=== PATIENT | male | born 1960 | race Caucasian/White ===

== ENCOUNTER 2017-03-01 11:39 | Inpatient (IN) | payer OTHER ==
[2017-03-01 16:18] VITALS: BMI 23.4
--- NOTE | 2017-03-01 18:36 | HP ---
CIWA Score - CIWA Score Nausea/Vomitin Muscle Tremors: 3 Anxiety: 3 Agitation: 2 Paroxysmal Sweats: 3 Orientation: 1-Uncertain about Date Tacttile Disturbances: 1-Very Mild Itch/Numbness Auditory Disturbances: 0-None Visual Disturbances: 0-None Headache: 2-Mild CIWA-Ar Total Score: 17 Admission ROS BHS - HPI Chief Complaint: WITHDRAWAL SYMPTOMS Allergies/Adverse Reactions: Allergies Allergy/AdvReac Type Severity Reaction Status Date / Time No Known Allergies Allergy Verified 03/01/17 16:51 History of Present Illness: 56 Y.O. MAN WITH A HISTORY OF ALCOHOL DEPENDENCE IS HERE SEEKING DETOX. HE DENIES EVER GOING TO DETOX AND DOES NOT HAVE A SIGNIFICANT PERIOD OF SOBRIETY. Exam Limitations: Intoxication - Ebola screening Have you traveled outside of the country in the last 21 days: No Have you been sick,other than usual withdrawal symptoms: No - Review of Systems Constitutional: Loss of Appetite, Changes in sleep, Unintentional Wgt. Loss EENT: reports: No Symptoms Reported Respiratory: reports: No Symptoms reported Cardiac: reports: No Symptoms Reported GI: reports: No Symptoms Reported : reports: No Symptoms Reported Musculoskeletal: reports: Back Pain Integumentary: reports: No Symptoms Reported Neuro: reports: Paresthesia (LEFT LE D/T SCIATICA) Endocrine: reports: No Symptoms Reported Hematology: reports: No Symptoms Reported Psychiatric: reports: Agitated, Anxious Other Systems: Reviewed and Negative Patient History - Patient Medical History Hx Anemia: No Hx Asthma: Yes Hx Chronic Obstructive Pulmonary Disease (COPD): No Hx Cancer: No Hx Cardiac Disorders: No Hx Congestive Heart Failure: No Hx Hypertension: No Hx Hypercholesterolemia: No Hx Pacemaker: No HX Cerebrovascular Accident: No Hx Seizures: No Hx Dementia: No Hx Diabetes: No Hx Gastrointestinal Disorders: No Hx Liver Disease: No Hx Genitourinary Disorders: No Hx Sexually Transmitted Disorders: No Hx Renal Disease (ESRD): No Hx Thyroid Disease: No Hx Human Immunodeficiency Virus (HIV): No Hx Hepatitis C: No Hx Depression: No Hx Suicide Attempt: No Hx Bipolar Disorder: No Hx Schizophrenia: No - Patient Surgical History Past Surgical History: Yes Hx Neurologic Surgery: No Hx Cataract Extraction: No Hx Cardiac Surgery: No Hx Lung Surgery: No Hx Breast Surgery: No Hx Breast Biopsy: No Hx Abdominal Surgery: No Hx Appendectomy: No Hx Cholecystectomy: No Hx Genitourinary Surgery: No Hx Section: No Hx Orthopedic Surgery: No Other Surgical History: corrective sx, nose in 2012 - PPD History Previous Implant?: Yes Documented Results: Negative w/o proof Implanted On Prior [facility] Admission?: No PPD to be Administered?: Yes - Reproductive History Patient is a Female of Child Bearing Age (11 -55 yrs old): No - Smoking Cessation Smoking history: Current every day smoker Have you smoked in the past 12 months: Yes Aproximately how many cigarettes per day: 10 Hx Chewing Tobacco Use: No Initiated information on smoking cessation: Yes 'Breaking Loose' booklet given: 03/01/17 - Substance & Tx. History Hx Alcohol Use: Yes Hx Substance Use: No Substance Use Type: Alcohol Hx Substance Use Treatment: No (Denies ever being in detox or rehab ) - Substances Abused Alcohol-vodka Route: Oral Frequency: Daily Amount used: 2 pts. Age of first use: 17 Date of Last Use: 03/01/17 Family Disease History - Family Disease History Family Disease History: CA: Mother, Respiratory: Father Admission Physical Exam [facility] - Vital Signs Vital Signs: Vital Signs - 24 hr 03/01/17 16:17 Temperature 96.4 F L Pulse Rate 89 Respiratory 20 Rate Blood Pressure 134/91 - Physical General Appearance: Yes: Alcohol on Breath, Intoxicated, Tremorous, Irritable, Anxious HEENTM: Yes: Hearing grossly Normal, Normal ENT Inspection, Normocephalic Respiratory: Yes: Chest Non-Tender, Lungs Clear, Normal Breath Sounds, No Respiratory Distress, No Accessory Muscle Use Neck: Yes: No masses,lesions,Nodules, Trachea in good position Breast: Yes: Breast Exam Deferred Cardiology: Yes: Regular Rhythm Abdominal: Yes: Normal Bowel Sounds, Non Tender, Flat, Soft Genitourinary: Yes: Other (NO COMPLAINTS REPORTED) Back: Yes: Normal Inspection Musculoskeletal: Yes: Muscle Pain Extremities: Yes: Normal Inspection, Normal Range of Motion, Non-Tender Neurological: Yes: Alert Integumentary: Yes: Normal Color, Dry, Warm - Diagnostic (1) Alcohol dependence with uncomplicated withdrawal Current Visit: Yes Status: Chronic (2) Sciatica of left side Current Visit: Yes Status: Chronic (3) Asthma Current Visit: Yes Status: Chronic Cleared for Admission [facility] - Detox or Rehab [facility] Level of Care: Medically Managed Detox Regimen/Protocol: Librium BHS Breath Alcohol Content Breath Alcohol Content: 0.295 Urine Drug Screen - Results Drug Screen Negative: No Urine Drug Screen Results: BZO-Benzodiazepines
[2017-03-01] MEDS ORDERED: LOPERAMIDE HCL 2 MG CAPSULE PO PRN (18:44)
[2017-03-01] MEDS ORDERED: chlordiazePOXIDE HCL 25 MG CAPSULE PO PRN (18:44)
[2017-03-01] MEDS ORDERED: P-EPHED 60MG/TRIPROLIDI 2.5MG TABLET PO PRN (18:44)
[2017-03-01] MEDS ORDERED: MAG HYDROX/AL HYDROX/SIMETH 30 ML UNIT-DOSE CUP PO PRN (18:44)
[2017-03-01] MEDS ORDERED: NICOTINE POLACRILEX 2 MG GUM BC PRN (18:44)
[2017-03-01] MEDS ORDERED: guaiFENesin/D-METHORPHAN HB 10 ML UNIT-DOSE CUPS PO PRN (18:44)
[2017-03-01] MEDS ORDERED: MENTHOL/PHENOL 1 EACH UD MM PRN (18:44)
[2017-03-01] MEDS ORDERED: chlordiazePOXIDE HCL 25 MG CAPSULE PO ONE (18:44)
[2017-03-01] MEDS ORDERED: hydrOXYzine PAMOATE 50 MG CAPSULE (FP) PO PRN (18:44)
[2017-03-01] MEDS ORDERED: ACETAMINOPHEN 325 MG TABLET (FP) PO PRN (18:44)
[2017-03-01] MEDS ORDERED: IBUPROFEN 600 MG TABLET (FP) PO PRN (18:44)
[2017-03-01] MEDS ORDERED: MAGNESIUM CITRATE 300 ML BOTTLE PO PRN (18:44)
[2017-03-01] MEDS ORDERED: MAGNESIUM HYDROX 2400MG/30ML ORAL SUSPENSION 30 ML CUP PO PRN (18:44)
[2017-03-01] MEDS ORDERED: diphenhydrAMINE HCL 50 MG CAPSULE PO PRN (18:44)
[2017-03-01] MEDS ORDERED: CYCLOBENZAPRINE HCL 10 MG TABLET (FP) PO PRN (18:46)
[2017-03-01] MEDS ORDERED: ALBUTEROL SO4 6.7 GM HFA INHALER IH PRN (18:49)
[2017-03-01] MEDS ORDERED: NICOTINE 14 MG/24 HOURS TOPICAL PATCH TD ONE (20:30)
[2017-03-01] MEDS: THIAMINE HCL 100 MG TABLET (FP) PO SCH (22:44)
[2017-03-01] MEDS: chlordiazePOXIDE HCL 25 MG CAPSULE PO SCH (22:44)
[2017-03-01 22:48] LABS: URINE APPEARANCE CLEAR; URINE BILIRUBIN NEGATIVE (NEGATIVE); URINE BLOOD NEGATIVE (NEGATIVE); URINE COLOR YELLOW; URINE GLUCOSE (UA) NEGATIVE (NEGATIVE); URINE KETONE NEGATIVE (NEGATIVE); URINE LEUK ESTERASE NEGATIVE (NEGATIVE); URINE NITRITE NEGATIVE (NEGATIVE); URINE PROTEIN NEGATIVE (NEGATIVE); URINE UROBILINOGEN NEGATIVE mg/dL (0.2-1.0)
[2017-03-02] MEDS: chlordiazePOXIDE HCL 25 MG CAPSULE PO SCH ×4 (05:50→23:09)
[2017-03-02] MEDS: PRENATAL VITAMINS W/ FOLIC ACID TABLET (FP) PO SCH (10:25)
[2017-03-02] MEDS: NICOTINE 14 MG/24 HOURS TOPICAL PATCH TD SCH (10:26)
[2017-03-02 11:07] LABS: ALBUMIN 3.5 g/dl (3.4-5.0); ALK PHOS 74 U/L (45-117); ANION GAP 11 (8-16); BILIRUBIN,TOTAL 0.4 mg/dL (0.2-1.0); CALCIUM 8.5 mg/dL (8.5-10.1); CO2 28 mmol/L (21-32); CREATININE 0.5 mg/dL (0.7-1.3); GLUCOSE,RANDOM 92 mg/dL (74-106); SGOT/AST 65 U/L (15-37); SGPT/ALT 47 U/L (12-78); TOT PROT 6.6 g/dl (6.4-8.2)
[2017-03-02 11:12] LABS: MCH 28.4 pg (25.7-33.7); MCHC 32.7 g/dl (32.0-35.9); MEAN CELL VOLUME 86.8 fl (80-96); MEAN PLT VOLUME 8.3 fl (7.5-11.1); PLATELET COUNT 117 K/MM3 (134-434); RDW 22.9 % (11.9-15.9); WHITE BLOOD COUNT 3.4 K/mm3 (4.0-10.0)
--- NOTE | 2017-03-02 20:35 | PN ---
[facility] CIWA - CIWA Score Nausea/Vomitin-No Nausea/No Vomiting Muscle Tremors: 4-Moderate,w/Arms Extend Anxiety: 3 Agitation: 2 Paroxysmal Sweats: 3 Orientation: 0-Oriented Tacttile Disturbances: 3-Moderate Itch/Numb/Burn Auditory Disturbances: 0-None Visual Disturbances: 3-Moderate Sensitivity Headache: 0-None Present CIWA-Ar Total Score: 18 BHS Progress Note (SOAP) Subjective: Tremors, Fatigue, Sweating, Body Aches. Objective: PT. A & O X 3. NO ACUTE DISTRESS. PT. DENIES CHEST PAIN. 03/02/17 20:31 Vital Signs Temperature 98.4 F 03/02/17 18:36 Pulse Rate 93 H 03/02/17 18:36 Respiratory Rate 18 03/02/17 18:36 Blood Pressure 131/88 03/02/17 18:36 O2 Sat by Pulse Oximetry (%) Laboratory Tests 03/01/17 03/02/17 03/02/17 20:30 07:30 07:30 WBC 3.4 L RBC 4.27 Hgb 12.1 Hct 37.1 MCV 86.8 MCH 28.4 MCHC 32.7 RDW 22.9 H Plt Count 117 L MPV 8.3 Sodium 144 Potassium 3.2 L Chloride 105 Carbon Dioxide 28 Anion Gap 11 BUN 11 Creatinine 0.5 L Creat Clearance w eGFR > 60 Random Glucose 92 Calcium 8.5 Total Bilirubin 0.4 AST 65 H ALT 47 Alkaline Phosphatase 74 Total Protein 6.6 Albumin 3.5 Urine Color Yellow Urine Appearance Clear Urine pH 5.0 Ur Specific [place] 1.025 Urine Protein Negative Urine Glucose (UA) Negative Urine Ketones Negative Urine Blood Negative Urine Nitrite Negative Urine Bilirubin Negative Urine Urobilinogen Negative Ur Leukocyte Esterase Negative RPR Titer 03/02/17 07:30 WBC RBC Hgb Hct MCV MCH MCHC RDW Plt Count MPV Sodium Potassium Chloride Carbon Dioxide Anion Gap BUN Creatinine Creat Clearance w eGFR Random Glucose Calcium Total Bilirubin AST ALT Alkaline Phosphatase Total Protein Albumin Urine Color Urine Appearance Urine pH Ur Specific [place] Urine Protein Urine Glucose (UA) Urine Ketones Urine Blood Urine Nitrite Urine Bilirubin Urine Urobilinogen Ur Leukocyte Esterase RPR Titer Nonreactive LABS NOTED. Assessment: 03/02/17 20:32 WITHDRAWAL SYMPTOMS. Plan: CONTINUE DETOX. K, 20 MEQ PO BID.
[2017-03-02] MEDS: POTASSIUM CHLORIDE TABS 20 MEQ TABLET.ER (FP) PO SCH (23:09)
[2017-03-02] MEDS: THIAMINE HCL 100 MG TABLET (FP) PO SCH (23:09)
[2017-03-03] MEDS: chlordiazePOXIDE HCL 25 MG CAPSULE PO SCH ×3 (05:13→17:39)
[2017-03-03] MEDS: NICOTINE 14 MG/24 HOURS TOPICAL PATCH TD SCH (10:46)
[2017-03-03] MEDS: PRENATAL VITAMINS W/ FOLIC ACID TABLET (FP) PO SCH (10:46)
[2017-03-03] MEDS: POTASSIUM CHLORIDE TABS 20 MEQ TABLET.ER (FP) PO SCH ×2 (10:46→22:29)
--- NOTE | 2017-03-03 16:36 | PN ---
[facility] CIWA - CIWA Score Nausea/Vomitin Muscle Tremors: 4-Moderate,w/Arms Extend Anxiety: 4-Mod. Anxious/Guarded Agitation: 3 Paroxysmal Sweats: No Perspiration Orientation: 0-Oriented Tacttile Disturbances: 1-Very Mild Itch/Numbness Auditory Disturbances: 0-None Visual Disturbances: 0-None Headache: 1-Very Mild CIWA-Ar Total Score: 16 S Progress Note (SOAP) Subjective: Chills, tremor, sweating, anxious, interrupted sleep Objective: 03/03/17 16:33 Last Vital Signs Temp Pulse Resp BP Pulse Ox 97.2 F L 108 H 20 135/101 03/03/17 14:41 03/03/17 14:41 03/03/17 14:41 03/03/17 14:41 Noted with tachycardia and htn Laboratory Tests 03/01/17 03/02/17 03/02/17 20:30 07:30 07:30 WBC 3.4 L RBC 4.27 Hgb 12.1 Hct 37.1 MCV 86.8 MCH 28.4 MCHC 32.7 RDW 22.9 H Plt Count 117 L MPV 8.3 Sodium 144 Potassium 3.2 L Chloride 105 Carbon Dioxide 28 Anion Gap 11 BUN 11 Creatinine 0.5 L Creat Clearance w eGFR > 60 Random Glucose 92 Calcium 8.5 Total Bilirubin 0.4 AST 65 H ALT 47 Alkaline Phosphatase 74 Total Protein 6.6 Albumin 3.5 Urine Color Yellow Urine Appearance Clear Urine pH 5.0 Ur Specific [place] 1.025 Urine Protein Negative Urine Glucose (UA) Negative Urine Ketones Negative Urine Blood Negative Urine Nitrite Negative Urine Bilirubin Negative Urine Urobilinogen Negative Ur Leukocyte Esterase Negative RPR Titer 03/02/17 07:30 WBC RBC Hgb Hct MCV MCH MCHC RDW Plt Count MPV Sodium Potassium Chloride Carbon Dioxide Anion Gap BUN Creatinine Creat Clearance w eGFR Random Glucose Calcium Total Bilirubin AST ALT Alkaline Phosphatase Total Protein Albumin Urine Color Urine Appearance Urine pH Ur Specific [place] Urine Protein Urine Glucose (UA) Urine Ketones Urine Blood Urine Nitrite Urine Bilirubin Urine Urobilinogen Ur Leukocyte Esterase RPR Titer Nonreactive Labs noted Assessment: 03/03/17 16:33 Withdrawal symptoms Noted with tachycardia, HTN, Hypokalemia Plan: Continue detox Tachycardia: secondary to withdrawal, encouraged to drink lots of water, continue to monitor HTN: start norvasc 10mg PO daily, first dose now Hypokalemia: continue K supplement, repeat BMP in AM
[2017-03-03] MEDS ORDERED: amLODIPine BESYLATE 10 MG TABLET (FP) PO SCH (16:45)
[2017-03-03] MEDS: THIAMINE HCL 100 MG TABLET (FP) PO SCH (22:29)
[2017-03-03] MEDS: chlordiazePOXIDE 5 MG CAPSULE PO SCH (22:29)
[2017-03-04] MEDS: chlordiazePOXIDE 5 MG CAPSULE PO SCH (05:26)
[2017-03-04 07:00] VITALS: BP 130/95; PULSE 96; TEMP 97.8
[2017-03-04 10:10] LABS: ANION GAP 9 (8-16); CALCIUM 9.5 mg/dL (8.5-10.1); CO2 27 mmol/L (21-32); CREATININE 0.7 mg/dL (0.7-1.3); GLUCOSE,RANDOM 116 mg/dL (74-106)
--- NOTE | 2017-03-04 12:01 | EKG ---
Test Reason : Blood Pressure : / mmHG Vent. Rate : 090 BPM Atrial Rate : 090 BPM P-R Int : 166 ms QRS Dur : 084 ms QT Int : 366 ms P-R-T Axes : 071 035 065 degrees QTc Int : 447 ms NORMAL SINUS RHYTHM SEPTAL INFARCT , AGE UNDETERMINED ABNORMAL ECG NO PREVIOUS ECGS AVAILABLE Confirmed by DESEAN ACOSTA MD ([id number]) on 03/04/2017 12:00:45 PM Referred By: Jose Manuel Campbell Confirmed By:DESEAN ACOSTA MD
--- NOTE | 2017-03-04 13:10 | DS ---
[facility] Detox Discharge Summary Admission Date: 03/01/17 Discharge Date: 03/04/17 - History Present History: Alcohol Dependence Pertinent Past History: Asthma sciatica LLE - Physical Exam Results Vital Signs: Vital Signs Temperature 97.8 F 03/04/17 06:59 Pulse Rate 96 H 03/04/17 06:59 Respiratory Rate 18 03/04/17 06:59 Blood Pressure 130/95 03/04/17 06:59 O2 Sat by Pulse Oximetry (%) Pertinent Admission Physical Exam Findings: Withdrawal sx. Laboratory Tests 03/01/17 03/02/17 03/02/17 20:30 07:30 07:30 WBC 3.4 L RBC 4.27 Hgb 12.1 Hct 37.1 MCV 86.8 MCH 28.4 MCHC 32.7 RDW 22.9 H Plt Count 117 L MPV 8.3 Sodium 144 Potassium 3.2 L Chloride 105 Carbon Dioxide 28 Anion Gap 11 BUN 11 Creatinine 0.5 L Creat Clearance w eGFR > 60 Random Glucose 92 Calcium 8.5 Total Bilirubin 0.4 AST 65 H ALT 47 Alkaline Phosphatase 74 Total Protein 6.6 Albumin 3.5 Urine Color Yellow Urine Appearance Clear Urine pH 5.0 Ur Specific [place] 1.025 Urine Protein Negative Urine Glucose (UA) Negative Urine Ketones Negative Urine Blood Negative Urine Nitrite Negative Urine Bilirubin Negative Urine Urobilinogen Negative Ur Leukocyte Esterase Negative RPR Titer 03/02/17 03/04/17 07:30 06:30 WBC RBC Hgb Hct MCV MCH MCHC RDW Plt Count MPV Sodium 138 Potassium 3.9 D Chloride 102 Carbon Dioxide 27 Anion Gap 9 BUN 12 Creatinine 0.7 D Creat Clearance w eGFR Random Glucose 116 H D Calcium 9.5 Total Bilirubin AST ALT Alkaline Phosphatase Total Protein Albumin Urine Color Urine Appearance Urine pH Ur Specific [place] Urine Protein Urine Glucose (UA) Urine Ketones Urine Blood Urine Nitrite Urine Bilirubin Urine Urobilinogen Ur Leukocyte Esterase RPR Titer Nonreactive labs noted - Medication Discharge Medications: Ambulatory Orders Albuterol Sulfate Inhaler - [Ventolin Hfa Inhaler -] 2 inh PO Q4H PRN 03/01/17 Cyclobenzaprine HCl [Flexeril -] 10 mg PO HS PRN 03/01/17 Tramadol HCl [Ultram] 50 mg PO Q8H PRN 03/01/17 - Diagnosis (1) Alcohol dependence with uncomplicated withdrawal Status: Acute (2) Asthma Status: Chronic Qualifiers: Asthma severity: mild intermittent Asthma complication type: uncomplicated Qualified Code(s): J45.20 - Mild intermittent asthma, uncomplicated (3) Sciatica of left side Status: Chronic - AMA Did Patient Leave Against Medical Advice: Yes
[2017-03-04] MEDS ORDERED: chlordiazePOXIDE HCL 10 MG CAPSULE PO SCH (23:00)
== END 2017-03-04 08:58 | disposition left against medical advice (07) | DRG 894 ==
LOC: YASAS 11:39 → Y3N 17:55
PROVIDERS: ADMIT Internal Medicine Addiction Medicine; ATTEND Internal Medicine Addiction Medicine
PROC: HZ2ZZZZ Detoxification Services for Substance Abuse Treatment (ICD-10-PCS; principal; 2017-03-01)
DX: F10.230 Alcohol dependence with withdrawal, uncomplicated (principal); F17.210 Nicotine dependence, cigarettes, uncomplicated; J45.20 Mild intermittent asthma, uncomplicated; M54.32 Sciatica, left side; R00.0 Tachycardia, unspecified; I10 Essential (primary) hypertension; E87.6 Hypokalemia
CPT/HCPCS: 36415; 80048; 80053; 81003; 85027; 86593; 93005; 93010